=== PATIENT | female | born 1970 | race Caucasian/White ===

== ENCOUNTER → 2017-10-19 09:12 | Outpatient (CLI) | payer OTHER, SELFPAY ==
--- NOTE | 2017-10-19 09:14 | RAD_ITS ---
STUDY: X-RAY - LUMBOSACRAL SPINE REASON FOR EXAM: Female, 47 years old. Lower back pain TECHNIQUE: 6 view(s) of the lumbosacral spine were obtained. COMPARISON: None FINDINGS: Normal lumbar lordosis. There is a mild dextroscoliosis of the lumbar spine. There is normal alignment of the vertebrae. Normal vertebral bodies and endplates. There is multi-level degenerative disc disease with multi-level disc space narrowing. The flexion-extension views show no evidence of instability. Normal bilateral sacral ala, sacroiliac joints, and visualized sacrum. Normal visualized soft tissue structures. RAD/L/S Spine Comp/w Bending Views IMPRESSION: Degenerative changes of the spine, as detailed above. Electronically Signed: Purvi Bragg MD at 7:25 EDT Tel , Service support ,
== END ==
PROVIDERS: Family Provider Family Medicine; PCP Family Medicine; Visit Provider Orthopaedic Surgery
DX: M54.5 Low back pain (principal)
CPT/HCPCS: 72114

== ENCOUNTER 2017-11-25 10:35 | Day surgery (SDC) | payer OTHER, SELFPAY ==
[2017-11-25] VITALS (9 sets, daily range): BP systolic 124–154; BP diastolic 60–84; PULSE 78–102; RESP 16–18; TEMP 36.6–37.4; O2SAT 100; BMI 17.3
--- NOTE | 2017-11-25 10:59 | EKG12_ITS ---
Test Reason : PRE OP Blood Pressure : / mmHG Vent. Rate : 080 BPM Atrial Rate : 080 BPM P-R Int : 124 ms QRS Dur : 130 ms QT Int : 394 ms P-R-T Axes : 075 -47 087 degrees QTc Int : 454 ms Normal sinus rhythm with sinus arrhythmia Left axis deviation Left bundle branch block Abnormal ECG Confirmed by RACHELE MICHAEL, RICKIE ([id number]), video tape editor RENETTA NICKERSON ([id number]) on 11/26/2017 1:45:01 PM Referred By: Camila Sheikh Confirmed By:RICKIE JEFFREY MD
[2017-11-25 11:09] LABS: Internal QC Validated? YES +Cl - CLEAR BKGD; Pregnancy, Urine Negative Negative
[2017-11-25 11:13] LABS: Hematocrit 42.1 % (37-47); Mean Corp Hgb Conc 33.3 g/gl (32-36); Mean Corpuscular Hgb 29.9 pg (27.0-32.0); Mean Platelet Vol. 9.3 fl (6.2-12.0); Platelet Count 193 K/mm3 (150-450); RBC Distribution Width CV 12.4 % (11.6-14.6); RBC Distribution Width SD 40.3 fl (35.1-43.9); Red Blood Count 4.68 M/mm3 (4.2-5.4); White Blood Count 5.6 K/mm3 (4.4-11.0)
[2017-11-25 11:14] LABS: Scan Indicated on CBC? Y/N NO
[2017-11-25] MEDS: Acetaminophen 500 MG Tablet 1000 MG PO (12:10)
[2017-11-25] MEDS: Ketorolac 60 MG/2 ML Vial IM (12:10)
--- NOTE | 2017-11-25 12:10 | FALS_PTH ---
PATIENT: ALEJANDRO GRGEG LOC: [facility] [place] U#:[id number] AGE/SX: 47/F ROOM: RE11/25/[address]: Dr. Camila Sheikh MD : 1970 BED: DIS: 11/25/2017 SPEC #: [id number] RECD: 11/26/17 09:09 STATUS: JESSICA JODI #: [id number] BRUNILDA: 11/25/17 12:[address]: Camila Sheikh DEPT: SURGICAL PATHOLOGY RECD BY: Herbert Cavanaugh ENTERED: 11/26/17 10:55 SP TYPE: FALL TUBES OTHR DR: Dr. Deshaun Balderrama MD Tissues: Fallopian tube Procedures: Surgery Specimen Level II HEADER OPERATION: Laparoscopic salpingectomy, hysteroscopy, Cris, ablation PRE-OP DIAGNOSIS: Menorrhagia, pelvic pain, intramural uterine fibroid TISSUE SUBMITTED: Bilateral fallopian tubes MICROSCOPIC DIAGNOSIS Right and left fallopian tubes, bilateral salpingectomies: Two complete cross-sections of fallopian tubes with no significant pathologic change. AM:renaldo 11/29/17 MICROSCOPIC DESCRIPTION Slides are reviewed. GROSS DESCRIPTION Received is one container labeled with the patient's name and designated bilateral fallopian tubes. The specimen consists of two fallopian tubes with fimbriated ends. Each fallopian tube measures 5 cm in average diameter and 0.5 cm in average thickness. The fimbriated ends are grossly unremarkable. One fallopian tube is inked in black ink. Serial sections do not reveal mass lesions. Also present free in the container are two coiled metallic devices in multiple fragments (more than three) ranging in length from 1.2 to 21 cm and with average diameters of 0.1 cm. Minute fragments of soft tissue are adherent to the metallic devices in areas. Assistant Director Of Admissions sections of both fallopian tubes are submitted in one cassette. / AM:renaldo 11/26/17 TC:5 CPT: 82866 x2
[2017-11-25] MEDS: Bupivacaine Mpf 0.5% 30 ML VIAL (15:50)
--- NOTE | 2017-11-25 15:54 | PCM.DC.D&C ---
Discharge Diet: No Restrictions Discharge Activity: Return to Normal Activity, May Shower, May Take a Tub Bath - in 2 weeks. Return to work on:: 11/29/17 May shower in (days): 1 - no tub baths x 2 weeks May resume sexual activity in: 3 weeks Lifting Restrictions: as tolerated Call your doctor if your incision/area has: Continuous Slow Oozing, Sudden Increased Bleeding, Foul Smelling Discharge, Swelling at the incision site Call your doctor if you observe: Fever of 101 or Higher, Using more than one pad per hour Cleanse incision/area with: Soap & Water, - - Your incisions have skin glue they can get wet Allergies/Adverse Reactions: Allergies doxycycline Allergy (Mild, Verified 11/17/17 10:03) unkown Medications to take at Discharge ibuprofen 800 mg tablet 800 mg PO TID PRN 10/08/17 metoprolol succinate ER 25 mg tablet,extended release 24 hr 12.5 mg PO DAILY tab 10/08/17 Mv-Min/Vit C/Glut/Fariha AC/Hc124 [Airborne Tablet Chewable] 1 each PO DAILY 11/17/17 Primary Care Physician: Deshaun Balderrama [Primary Care Provider] - Please Follow Up With: Camila Sheikh MD - [phone] When: 2-4 weeks or as needed
--- NOTE | 2017-11-25 16:03 | OP.PCM_ITS ---
Report of Operation Date of Procedure: 11/25/17 Pre-Operative Diagnosis: Menorrhagia, intramural uterine fibroid, chronic pelvic pain Post-Operative Diagnosis: Same plus endometriosis of posterior cul-de-sac Surgery/Procedure Performed:: Laparoscopic bilateral salpingectomy with removal of Essure devices and hysteroscopy with Cris endometrial ablation Description of Surgical Findings:: Enlarged uterus with firm fundal fibroid, tubes appeared normal but there were some adhesions of the left tube and ovary to the pelvic sidewall. No obvious endometriosis of the ovaries but there was definite endometriosis of the posterior cul-de-sac causing some filmy adhesions in the posterior cul-de-sac and to the ovaries. There is very injected erythematous appearance to the peritoneum overlying the bladder, no other intra-abdominal abnormalities noted. Well-appearing cervix, lush endometrium without polyps or fibroids visible. Normal triangular-shaped uterine cavity. Both tubal ostia were identified. The Essure devices were removed laparoscopically and no remaining pieces of pressure were noted upon hysteroscopic exam. conditioner tumbler: None Type of Anesthesia:: General Anesthesiologist: Cheyenne Mcmahan Special Medications: none Specimen's removed: Bilateral tubes and Essure devices Drains: None Estimated Blood Loss (mL): 10 cc Fluids Replaced: 100 cc LR Description of Procedure: The patient was taken to the OR where she was prepped and draped in dorsal lithotomy position. The weighted speculum was placed in the vagina and the anterior lip of the cervix was grasped with a single-tooth tenaculum. The cervix was dilated serially with Hegar dilators. The uterine cavity was 7 cm and retroverted. The cervical length was 3 cm. The Noreen uterine manipulator was placed and attention was turned to the abdominal portion of the case. 0.25% Marcaine was used to inject all the skin incision sites before the ports were placed. A 5 mm intraumbilical incision was made and a 5 mm blade less trocar and sleeve advanced directly peritoneal cavity without difficulty. Intraperitoneal placement was confirmed with the laparoscope. The pneumoperitoneum was created and the underlying abdominal contents were intact. Left lateral port was placed under direct visualization and it was 5 mm and then the small grasper was inserted approximately 3 cm above the symphysis pubis to aid with retraction. The tubes were identified and followed up to the fimbriated end. The antimesenteric portions of the tubes were clamped, set sealed, and transected with the LigaSure device. They were taken back to the cornual insertions and then clamped across the cornual insertion and ligated and transected the pedicle. The Essure devices seem to be curled up in the proximal portions of the tube. I used a grasper to tease out the Essure devices from the proximal portion of the tube. The old and are generally visible hysteroscopically were teased out separately and both Essure devices were removed in 2 pieces. The above findings were noted. The tubes were brought out through the 5 mm port with Essure devices. The pedicles were hemostatic. The left lateral port was taken out under direct visualization was hemostatic. The pneumoperitoneum was released and the remainder the instruments were removed from the abdominal cavity. The skin incisions were closed with Monocryl suture and skin glue. The 5mm hysteroscope was placed into the uterine cavity and the above findings were noted. Bilateral tubal ostia were identified. The uterus sounded to 7cm and the cervical length was 3cm. The endometrial cavity length was 4cm. The hysteroscope was removed. The Cris device was set to 4cm. The instrument was then seated into the endometrial cavity and the indicator was in the green. The cervical seal balloon was inflated and the uterine integrity test was passed. The ablation procedure was initiated and completed without interruption. During the ablation procedure gentle traction was held on the tenaculum and the Cris device was held up against the uterine fundus. When the ablation procedure was completed the Cris was removed. The tenaculum was removed and the tenaculum site was noted to be hemostatic. All sponge and needle counts were correct. A vaginal sweep was performed by me. The patient was awakened and taken to the recovery room in stable condition. Hysteroscopic ins: 200cc normal saline Hysteroscopic outs:190cc Findings: Endometrial cavity: normal, no fibroids or polyps noted Cervix: normal Vagina: normal Grafts/Implants Used: None - Complications None - Admit VTE Documentation VTE Present on Admission: No VTE Mechan Device Prophylaxis: SCD's VTE Pharm Prophylaxis ordered?: No Reason prophylaxis not ordered:: Procedure Not Indicated
[2017-11-25] MEDS: HYDROmorphone 1 MG/ML Syringe IV (17:41)
[2017-11-25] MEDS: HYDROcodone Bitartrate/Apap 5/325 Tablet PO (18:17)
== END 2017-11-25 19:35 | disposition home or self-care (01) ==
LOC: SDC 10:36 → AC 10:37
PROVIDERS: Family Provider Family Medicine; PCP Family Medicine; Visit Provider Obstetrics & Gynecology
PROC: 0U5B8ZZ Destruction of Endometrium, Via Natural or Artificial Opening Endoscopic (ICD-10-PCS; CPT 58558; 2017-11-25 11:55)
DX: N92.0 Excessive and frequent menstruation with regular cycle (principal); G89.29 Other chronic pain; R10.2 Pelvic and perineal pain; N80.3 Endometriosis of pelvic peritoneum; D25.1 Intramural leiomyoma of uterus; I44.7 Left bundle-branch block, unspecified; Z87.891 Personal history of nicotine dependence
CPT/HCPCS: 58563; 58661; 36415; 81025; 85027; 88302; 93005; J7120; J2405